=== PATIENT | female | born 1990 | race Caucasian/White ===

== ENCOUNTER 2020-04-24 15:25 | Emergency (ER) | payer MEDICAID ==
[~2020-04-24] VITALS: Ht 160 cm; Wt 90.7 kg
[2020-04-24 15:45] VITALS: BP_SYST 114
[2020-04-24] MEDS ORDERED: AZITHROMYCIN 250 MG TABLET PO ONE (16:00)
[2020-04-24] MEDS ORDERED: cefTRIAXone 1 GM VIAL IM ONE (16:00)
[2020-04-24] MEDS ORDERED: LIDOCAINE 1% 10 MG/ML, 20 ML MDV INJ ONE (16:15)
[2020-04-24] MEDS ORDERED: LIDOCAINE 1%, 20 ML MDV 20 ML ONE (16:17)
[2020-04-24 17:01] VITALS: BP_SYST 112
== END 2020-04-24 17:01 | disposition home or self-care (01) ==
LOC: SED 15:25
DX: O98.211 Gonorrhea complicating pregnancy, first trimester (principal); Z3A.08 8 weeks gestation of pregnancy
CPT/HCPCS: 96372; 99283; J0696; J2001; Q0144